=== PATIENT | male | born 1980 | race African-American/Black ===

== ENCOUNTER 2018-02-01 22:03 | Emergency (ER) | payer MEDICAID, OTHER ==
[~2018-02-01] VITALS: Ht 182.9 cm; Wt 123.0 kg
[2018-02-01 23:21] VITALS: BP 161/101
== END 2018-02-02 03:00 | disposition left against medical advice (07) ==
LOC: ER 22:03
DX: F41.9 Anxiety disorder, unspecified (principal); Z53.21 Procedure and treatment not carried out due to patient leaving prior to being seen by health care provider

== ENCOUNTER 2018-08-04 23:51 | Emergency (ER) | payer MEDICAID, OTHER ==
[~2018-08-04] VITALS: Ht 185.4 cm; Wt 123.0 kg
[2018-08-05] MEDS ORDERED: LORAZEPAM 2MG/ML CPJ IM STA (00:23)
[2018-08-05 01:24] LABS: BASOPHILS % 1.1 % (0.0-2.0); CHLORIDE 105 mEq/L (98-107); EOSINOPHILS % 2.1 % (0.0-5.0); HEMATOCRIT. 43.4 % (42.0-52.0); HEMOGLOBIN. 14.6 g/dL (14.0-18.0); LYMPHOCYTES % 34.8 % (20.0-50.0); MEAN CORPUSCULAR HEMOGLOBIN 26.8 pg (28.0-32.0); MEAN CORPUSCULAR VOLUME 79.4 fL (80.0-94.0); MEAN PLATELET VOLUME 7.8 fl (7.4-10.4); MONOCYTES % 7.1 % (2.0-8.0); NEUTROPHILS % 54.9 % (40.0-76.0); PLATELET 309 x1000/uL (130-400); RED BLOOD CELL COUNT 5.46 mill/uL (4.7-6.1); RED CELL DISTRIBUTION WIDTH 14.5 % (11.6-14.6)
[2018-08-05 01:28] LABS: ETHANOL BLOOD < 10 mg/dL
[2018-08-05 04:55] LABS: CLARITY URINE CLEAR (CLEAR); COLOR URINE YELLOW (YELLOW); KETONES URINE TRACE (NEGATIVE); LEUKOCYTE ESTERASE URINE NEGATIVE (NEGATIVE); NITRITE URINE NEGATIVE (NEGATIVE); OCCULT BLOOD URINE NEGATIVE (NEGATIVE); PH URINE 5.5 (4.5-8.0); PROTEIN URINE NEGATIVE (NEGATIVE); SPECIFIC GRAVITY URINE 1.028 (1.005-1.030); UROBILINOGEN URINE 0.2 E.U./dL (0.2-1.0)
[2018-08-05 05:12] LABS: *AMPHETAMINES SCREEN URINE PRESUMTIVE POSITIVE (NEGATIVE); *BARBITURATES SCREEN URINE NEGATIVE (NEGATIVE); *BENZODIAZEPINES SCREEN URINE PRESUMTIVE POSITIVE (NEGATIVE); *COCAINE SCREEN URINE NEGATIVE (NEGATIVE); METHADONE URINE SCREEN NEGATIVE (NEGATIVE); OPIATES URINE SCREEN NEGATIVE (NEGATIVE)
[2018-08-05 05:13] LABS: CANNABINOID URINE SCREEN PRESUMTIVE POSITIVE (NEGATIVE); PHENCYCLIDINE URINE SCREEN NEGATIVE (NEGATIVE)
[2018-08-05] MEDS ORDERED: IPRATROPIUM/ALBUTEROL 0.5-3(2.5)MG/3ML NEB HHN SCH (20:15)
[2018-08-05] MEDS ORDERED: PIPERACILLIN/TAZ 3.375G PREMIX 50 ML IV SCH (20:15)
[2018-08-05] MEDS ORDERED: IBUPROFEN 600MG TABLET PO ONE (21:30)
[2018-08-06 16:02] VITALS: BP 118/74
== END 2018-08-06 16:05 | disposition home or self-care (01) ==
LOC: ER 08-05 00:05
DX: R45.851 Suicidal ideations (principal); R45.850 Homicidal ideations; F41.9 Anxiety disorder, unspecified; F31.9 Bipolar disorder, unspecified; F17.200 Nicotine dependence, unspecified, uncomplicated; F12.10 Cannabis abuse, uncomplicated; F15.10 Other stimulant abuse, uncomplicated
CPT/HCPCS: 36415; 80048; 80305; 80307; 80329; 81003; 85025; 87086; 96372; 99284; G0482; J2060; Z7610